=== PATIENT | male | born 1975 | race Caucasian/White ===

== ENCOUNTER 2016-10-21 21:40 | Emergency (ER) | payer MEDICAID ==
[2016-10-21 21:44] VITALS: BP 106/71; PULSE 93; RESP 14; TEMP 97.9; O2SAT 94
--- NOTE | 2016-10-21 22:14 | EDPHY ---
H & P Stated Complaint: L thumb abcess Time Seen by Provider: 10/21/16 22:00 HPI/ROS: HPI The patient presents with left thumb redness and swelling which has been present for the last 2-3 weeks which is associated with pain. This began after shooting IV drugs into his thumb. This is been getting progressively worse. About 3 days ago he attempted to Rei it himself at home, however was unsuccessful. Thus he return to the emergency room for further care. REVIEW OF SYSTEMS Constitutional: No fever, no chills. Eyes: No discharge. ENT: No sore throat. Cardiovascular: No chest pain, no palpitations. Skin: No rashes. Neurological: No headache. PMHx: Healthy otherwise, no diabetes Soc Hx: History of IV drug use PHYSICAL General Appearance: Alert, no distress Eyes: Pupils equal and round no pallor or injection ENT, Mouth: Mucous membranes moist Respiratory: There are no retractions, lungs are clear to auscultation Cardiovascular: Regular rate and rhythm Neurological: A&O, moves all extremities Skin: Warm and dry, no rashes Musculoskeletal: Neck is supple non tender Extremities: Left thumb dorsal aspect with 4 x 6 cm area of fluctuation with overlying erythema, warmth, tenderness to palpation, full range of motion of thumb, 2+ radial pulses, brisk cap refill of thumb with full range of motion. Psychiatric: Patient is oriented X 3, there is no agitation Source: Patient Exam Limitations: No limitations - Personal History Current Tetanus/Diphtheria Vaccine: Unsure - Medical/Surgical History Hx Asthma: No Hx Chronic Respiratory Disease: No Hx Diabetes: No Hx Cardiac Disease: No Hx Renal Disease: No Hx Cirrhosis: No Hx Alcoholism: No Hx HIV/AIDS: No Hx Splenectomy or Spleen Trauma: No Other PMH: hx prior head injuries, migraines, arrhythmia, iv drug use - od, orif R wrist - Social History Smoking Status: Current every day smoker Constitutional: Initial Vital Signs Temperature (C) 36.6 C 10/21/16 21:42 Heart Rate 93 10/21/16 21:42 Respiratory Rate 14 10/21/16 21:42 Blood Pressure 106/71 10/21/16 21:42 O2 Sat (%) 94 10/21/16 21:42 O2 Delivery Mode Room Air Allergies/Adverse Reactions: No Known Allergies Allergy (Verified 02/16/16 01:26) Home Medications: Medication Instructions Recorded Clindamycin HCl [Clindamycin] 300 mg PO TID #30 cap 10/21/16 Medical Decision Making Procedures: Procedure I and D: The wound was anesthetized with lidocaine 1% without epinephrine approximately 2 mL. Using a 15. Blade scalpel an incision was made over the area of maximal fluctuance with return of a moderate amount of pus. The wound was not packed given its small size. Differential Diagnosis: This is a 41-year-old man who is otherwise healthy with IV drug use who injected into his left thumb approximately 3 weeks ago. He subsequently developed redness, pain, swelling of the thumb. He attempted to perform incision and drainage at home 3 days ago but has had continued swelling. He denies any fevers or chills, nausea or vomiting. He has no prior history of similar. Differential diagnosis includes abscess, cellulitis, less likely necrotizing fasciitis given well localized and small size of wound, patient is not systemically ill. Plan to perform incision and drainage in the emergency room. I will start him on antibiotics given that he is an IV drug user. He is invited to return for wound check in 2 days to the emergency room or to [facility], I have given him the information. We have updated his tetanus shot. Departure - Departure Disposition: Home, Routine, Self-Care Clinical Impression: Abscess of thumb, left Condition: Good Instructions: Abscess Follow-up (ED) Additional Instructions: Please keep the wound clean. It is okay to get it wet in the shower or bath. You can return in 2 days for wound check. Referrals: [facility] [Outside] - As per Instructions Prescriptions: Clindamycin HCl [Clindamycin] 300 mg PO TID #30 cap
[2016-10-21] MEDS ORDERED: TDAP ADULT 0.5 ML INJ (BOOSTRIX) IM ONE (22:16)
[2016-10-21] MEDS ORDERED: BACITRACIN OINTMENT 1 PACKET TP ONE (22:27)
[2016-10-21] MEDS ORDERED: CLINDAMYCIN 150 MG CAP PO ONE (22:44)
== END 2016-10-21 22:49 | disposition home or self-care (01) ==
PROC: 0H9GXZZ Drainage of Left Hand Skin, External Approach (ICD-10-PCS; principal; 2016-10-21)
DX: L02.512 Cutaneous abscess of left hand (principal); F17.200 Nicotine dependence, unspecified, uncomplicated

== ENCOUNTER 2017-01-04 22:57 | Inpatient (IN) | payer MEDICAID ==
--- NOTE | 2017-01-04 23:09 | EDPHY ---
H & P Time Seen by Provider: 01/04/17 23:02 HPI/ROS: CHIEF COMPLAINT: Right upper extremity swelling HISTORY OF PRESENT ILLNESS: 41 year old male with history of hepatitis-C, IV drug use, arrives from intermediate for evaluation of right upper extremity erythema, swelling, induration. Denies: Fever, chills, nausea, vomiting, chest pain, dyspnea. Patient has history of right distal radius ORIF in November [address] Gómez Blue. REVIEW OF SYSTEMS: A ten point review of systems was performed and is negative with the exception of the items mentioned in the HPI PAST MEDICAL & SURGICAL HISTORY: Hepatitis-C. IV drug use. Right distal radius ORIF November 2014 Dr. Gómez Blue. SOCIAL HISTORY: history of IV drug use PHYSICAL EXAM (Prior to examination, patient consented to physical exam, hands were washed and my usual and customary physical exam procedures followed) 1) GENERAL: Well-developed, well-nourished, alert and oriented. Appears nontoxic 2) HEAD: Normocephalic, atraumatic 3) HEENT: Pupils equal, round, reactive to light bilaterally. Sclera anicteric. 4) NECK: Full range of motion, no meningeal signs. 5) LUNGS: Clear auscultation bilaterally 6) HEART: Regular rate and rhythm, no murmur 7) ABDOMEN: No guarding, no rebound, no focal tenderness, 8) MUSCULOSKELETAL: Right upper extremity: Volar wrist surgical incision noted. There is erythema, induration, increased warmth and pain at this site. There is similar at the right antecubital fossa. No axillary adenopathy noted. No crepitus. Soft compartments. Range of motion distally does not elicit abnormal pain proximally. Multiple puncture wounds at venous sites noted. Left upper extremity: Multiple puncture wounds at venous sites noted with no signs of abscess. 9) BACK: no visual or palpable abnormality. 10) SKIN: Multiple puncture wounds to bilateral upper extremities 11) Psychiatric: Patient is oriented X 3, there is no agitation. DIFFERENTIAL DIAGNOSIS: in no particular order including but not limited to DVT, abscess cellulitis, necrotizing fasciitis - Medical/Surgical History Hx Asthma: No Hx Chronic Respiratory Disease: No Hx Diabetes: No Hx Cardiac Disease: No Hx Renal Disease: No Hx Cirrhosis: No Hx Alcoholism: No Hx HIV/AIDS: No Hx Splenectomy or Spleen Trauma: No Other PMH: hx prior head injuries, migraines, arrhythmia, iv drug use - od, orif R wrist - Social History Smoking Status: Current every day smoker Constitutional: Initial Vital Signs Temperature (C) 37.0 C 01/04/17 23:04 Heart Rate 88 01/04/17 23:04 Respiratory Rate 16 01/04/17 23:04 Blood Pressure 122/77 H 01/04/17 23:04 O2 Sat (%) 96 01/04/17 23:04 O2 Delivery Mode Room Air Allergies/Adverse Reactions: No Known Allergies Allergy (Verified 02/16/16 01:26) Home Medications: Medication Instructions Recorded Seroquel 01/04/17 Medical Decision Making ED Course/Re-evaluation: 11:09 p.m.: This patient is physical exam findings concerning for multiple abscesses to his upper extremity including an abscess in location of orthopedic hardware placed in 2014 as well as his concurrent hepatitis C history. Recommended admission to hospital as well as IV antibiotics. Patient is agreeable with admission. Discussed case Dr. Reagan in ER. 11:22 p.m.: Phone consultation with hospitalist Dr. Flores who will admit patient Departure - Departure Disposition: [facility] Acute Clinical Impression: Right upper extremity abscesses multiple, IV drug user Hepatitis C Qualifiers: Viral hepatitis chronicity: unspecified Hepatic coma status: without hepatic coma Qualified Code(s): B19.20 - Unspecified viral hepatitis C without hepatic coma Condition: Fair Referrals: NONE *PRIMARY CARE P,. [Primary Care Provider] - As per Instructions
[2017-01-04] MEDS ORDERED: ONDANSETRON DISINTEGRATING 4 MG TAB PO PRN (23:33)
[2017-01-04] MEDS ORDERED: ONDANSETRON 4 MG/2 ML VIAL IVP PRN (23:33)
[2017-01-04] MEDS ORDERED: ACETAMINOPHEN 325 MG TAB PO PRN (23:33)
[2017-01-04] MEDS ORDERED: VANCOMYCIN PHARMACY TO DOSE MISC SCH (23:45)
[2017-01-04 23:57] LABS: % IMMATURE GRANULYOCYTES 0.5 % (0.0-1.1); ABSOLUTE IMMATURE GRANULOCYTES 0.07 10^3/uL (0.00-0.10); ADD DIFF? NO; ADD MORPH? NO; ADD SCAN? NO; ATYPICAL LYMPHOCYTE FLAG 10 (0-99); FRAGMENT RBC FLAG 0 (0-99); HEMATOCRIT 42.9 % (40.0-51.0); HEMOGLOBIN 13.9 g/dL (13.7-17.5); LEFT SHIFT FLG 0 (0-99); LIPEMIA HEMOLYSIS FLAG 80 (0-99); MEAN CELL HEMOGLOBIN 29.9 pg (27.9-34.1); MEAN CELL HEMOGLOBIN CONCENTR. 32.4 g/dL (32.4-36.7); MEAN CELL VOLUME 92.3 fL (81.5-99.8); MEAN PLATELET VOLUME 9.2 fL (8.7-11.7); PLATELET CLUMPS FLAG 10 (0-99); PLATELET COUNT 337 10^3/uL (150-400); RED BLOOD CELL COUNT 4.65 10^6/uL (4.40-6.38); RED CELL DISTRIBUTION WIDTH 13.4 % (11.5-15.2)
[2017-01-05 00:16] LABS: ANION GAP 14 mEq/L (8-16); CALCIUM 9.7 mg/dL (8.5-10.4); CARBON DIOXIDE 24 mEq/l (22-31); CHLORIDE 106 mEq/L (97-110); CREATININE 0.7 mg/dL (0.7-1.3); GLOMERULAR FILTRATION RATE > 60; GLUCOSE 96 mg/dL (70-100); POTASSIUM 4.4 mEq/L (3.5-5.2); SODIUM 144 mEq/L (134-144)
[2017-01-05] MEDS ORDERED: VANCOMYCIN HCL/NORMAL SALINE 250 ML IV ONE (01:00)
[2017-01-05 04:59] LABS: % IMMATURE GRANULYOCYTES 0.3 % (0.0-1.1); ABSOLUTE IMMATURE GRANULOCYTES 0.04 10^3/uL (0.00-0.10); ADD DIFF? NO; ADD MORPH? NO; ADD SCAN? NO; ATYPICAL LYMPHOCYTE FLAG 10 (0-99); FRAGMENT RBC FLAG 0 (0-99); HEMATOCRIT 36.1 % (40.0-51.0); HEMOGLOBIN 11.9 g/dL (13.7-17.5); LEFT SHIFT FLG 0 (0-99); LIPEMIA HEMOLYSIS FLAG 80 (0-99); MEAN CELL HEMOGLOBIN 30.4 pg (27.9-34.1); MEAN CELL VOLUME 92.1 fL (81.5-99.8); MEAN PLATELET VOLUME 9.3 fL (8.7-11.7); PLATELET CLUMPS FLAG 0 (0-99); PLATELET COUNT 292 10^3/uL (150-400); RED BLOOD CELL COUNT 3.92 10^6/uL (4.40-6.38); RED CELL DISTRIBUTION WIDTH 13.6 % (11.5-15.2)
--- NOTE | 2017-01-05 07:44 | GHP ---
[f rep st] HISTORY AND PHYSICAL DATE OF ADMISSION: 01/04/2017 CHIEF COMPLAINT: Right arm swelling. HISTORY OF PRESENT ILLNESS: This is a 41-year-old male with a history of IV drug abuse. He also corrales s a history of a fracture on the right wrist and has hardware. He states that he has had 2 weeks of right wrist and arm swelling. He has not had any fevers or chills. There has been some increased pain. He did receive a dose of vancomycin in the emergency department, is feeling a lot better now. He does not have a previous history of MRSA. REVIEW OF SYSTEMS: Ten-point review of systems was obtained; other than stated above, was negative. PAST MEDICAL HISTORY: 1. IV drug abuse. 2. Hepatitis C. 3. Right wrist fracture with status post surgery. SOCIAL HISTORY: Positive smoking, positive IV drug abuse with heroin. FAMILY HISTORY: Reviewed and noncontributory. PHYSICAL EXAMINATION: VITAL SIGNS: Afebrile. Blood pressure is heart rate is 78, oxyge n saturation 91% on room air. GENERAL: Patient is well developed, in no apparent distress. HEENT: Nonicteric sclerae. Extraocular movements intact. Moist mucous membranes. NECK: Supple. No th yromegaly. LUNGS: Good effort. Clear to auscultation bilaterally. CARDIOVASCULAR: Regular rate and rhythm. No murmurs, gallops. ABDOMEN: Positive bowel sounds. Soft, nontender, nondistended. No hepatosplenomegaly. EXTREMITIES: Right arm shows some warmth and mild erythema. There is an a rei of swelling just right at the wrist, but it seems firm without any fluctuance that I am able to ascertain. He is able to move all fingers. NEURO: Alert and oriented x3. Moving all 4 extremitie s equally. PSYCHIATRIC: Normal mood and affect. LABORATORY DATA: White count is 14. Otherwise, normal. Chemistry is normal. Ultrasound was done, but I do not have the results of this. ASSESSMENT: This is a 41-year-old male with history of IV drug abuse presenting with right arm cell ulitis. PLAN: 1. Right arm cellulitis. This has been going on for a couple weeks. He has been given vancomycin in the emergency department. We will continue this. We will get Infectious Disease to see him, as well, as there is a question of hardware underneath the cellulitis and if a longer course of IV anti biotics and search for osteomyelitis is indicated. I am not feeling any fluctuance at this point. Ultrasound is pending. We will have surgery come take a look. 2. History of hepatitis C. 3. Admission. Patient will be made a full admission status. Case discussed with ER physician. Rk hua is high risk due to vancomycin dosing. /[id number]/MODL
[2017-01-05] MEDS: OXYCODONE/APAP 5/325 TAB PO PRN ×2 (10:45→20:14)
--- NOTE | 2017-01-05 12:39 | SOAPPROG ---
SOAP Progress Note Assessment/Plan: Assessment: 41-YEAR-OLD MALE WITH 2 ABSCESSES RIGHT ARM SECONDARY TO NEEDLE INJECTIONS FOR DRUG USE. AFEBRILE RISKS AND OPTIONS FULLY DISCUSSED PATIENT WILL NEED I AND D Plan: I AND D TODAY 01/05/17 12:38 Objective: Vital Signs Temp Pulse Resp BP Pulse Ox 36.8 C 69 16 106/58 L 95 01/05/17 11:06 01/05/17 11:06 01/05/17 11:06 01/05/17 11:06 01/05/17 11:06 Laboratory Results 01/05/17 04:41 01/04/17 23:48 01/04/17 01/05/17 01/06/17 05:59 05:59 05:59 Intake Total 625 300 Output Total 400 Balance 625 -100 ICD10 Worksheet Patient Problems: Problems Problem Status Onset Hepatitis C Acute IV drug user Acute Fracture at left wrist or hand level Acute
[2017-01-05] MEDS ORDERED: BUPIVACAINE 0.5% 30 ML SDV ONE (13:06)
[2017-01-05] MEDS ORDERED: fentaNYL 250 MCG/5 ML INJ ONE (13:25)
[2017-01-05] MEDS ORDERED: PROPOFOL 200 MG/20 ML VIAL ONE ×2 (13:25→14:46)
[2017-01-05] MEDS ORDERED: MIDAZOLAM 2 MG/2 ML VIAL ONE ×2 (14:11→14:38)
--- NOTE | 2017-01-05 15:11 | HOSPPROG ---
Hospitalist Progress Note Assessment/Plan: 41y male with c/o right wrist pain. D/W Dr Flores. This is my first encounter. Chart reviewed. #Right wrist infection Julio to I&D today Abscess present Cont abx ID consult pending #Pain cont support care and meds #IVDA last use yesterday heroin #Withdrawl order Ativan #Hep C no intervention now #Dispo unclear given further evaluation Await cultures. Subjective: Very tired, still having some pain. Objective: Vital Signs Temp Pulse Resp BP Pulse Ox 36.8 C 69 16 106/58 L 95 01/05/17 11:06 01/05/17 11:06 01/05/17 11:06 01/05/17 11:06 01/05/17 11:06 Laboratory Results 01/05/17 04:41 01/04/17 23:48 01/04/17 01/05/17 01/06/17 05:59 05:59 05:59 Intake Total 625 300 Output Total 400 Balance 625 -100 - Physical Exam Constitutional: chronically ill appearing, uncomfortable, unkempt Eyes: PERRL, anicteric sclera, EOMI Ears, Nose, Mouth, Throat: moist mucous membranes, hearing normal, ears appear normal Cardiovascular: tachycardia, No JVD, No edema Respiratory: no respiratory distress, no rales or rhonchi, reduced air movement Gastrointestinal: No tenderness, No ascites, No guarding Skin: warm, erythema, fluctuance Musculoskeletal: normal joint ROM, joint tenderness, pain with ROM Neurologic: AAOx3 Psychiatric: interacting appropriately, not anxious, not encephalopathic, poor insight ICD10 Worksheet Patient Problems: Problems Problem Status Onset Fracture at left wrist or hand level Acute IV drug user Acute Hepatitis C Acute
[2017-01-05] MEDS: VANCOMYCIN 1.25 GM in D5W 250 ML IV SCH (16:30)
--- NOTE | 2017-01-05 18:06 | GCON ---
[f rep st] CONSULTATION INPATIENT INFECTIOUS DISEASE CONSULTATION DATE OF CONSULTATION: 01/05/2017 REFERRING PHYSICIAN: Edie Flores MD REASON FOR REFERRAL: Right upper extremity cellulitis and abscess. HISTORY OF PRESENT ILLNESS: Patient is a 41-year-old male who is a known injection drug user who pr esented to [facility] on 01/04/2017. He complained of right arm swelli ng. He also has a history of a fracture of the radius and ulna of the right side with hardware soledad nstruction. The patient states his symptoms have been ongoing for the last 2 weeks. Denied any fev ers or chills upon presentation. He noted that the size of the arm and the amount of pain in the ar m has increased. He is managed currently with vancomycin monotherapy. He did, per his report, go t o the operating room this afternoon for incision and drainage of 2 discovered fluid collections in t he arm. PAST MEDICAL HISTORY: 1. IV drug use. 2. Hepatitis C. PAST SURGICAL HISTORY: Status post reconstruction of the right radius and ulna with hardware. ANTIBIOTICS: Vancomycin. ALLERGIES: The patient has no known drug allergies. SOCIAL HISTORY: The patient is a current tobacco user. He also is a current IV heroin user. FAMILY HISTORY: Noncontributory. REVIEW OF SYSTEMS: Other than that detailed above in History of Present Illness, a comprehensive 10 -system review is negative. PHYSICAL EXAMINATION: VITAL SIGNS: Temperature maximum is 37.0, temperature current is 36.5, heart rate is 67, respiratory rate is 20, blood pressure is 115/67. GENERAL: The patient is a well-form ed, well-nourished, middle-aged male, in no acute distress. He is not toxic in appearance. He is a lert and oriented x3. He has a pleasant demeanor. HEENT: Normocephalic for age. Atraumatic. No drainage from the nares. Eyes: Lids and conjunctivae within normal limits. Pupils are equal, roun d bilaterally. NECK: Supple. No meningismus. LUNGS: Clear to auscultation bilaterally with good effort. HEART: Regular rate and rhythm. No significant peripheral edema. SKIN: Warm and dry to the touch. The patient has 2 areas of incisions on the right upper extremity; 1 near the wrist and 1 up near the elbow. These have postoperative dressings intact. There is edema and some mild eryt percy of the right upper extremity from the elbow to wrist. Mild tenderness to palpation. MUSCULOSK ELETAL: No other muscle belly tenderness is noted. No joint enlargement, effusion, or arthritis is seen. NEUROLOGIC: Cranial nerves 2 through 12 seem to be intact. Peripheral sensation is intact in extremities. LABORATORY DATA: Patient has a CBC dated 01/05/17, shows a white blood cell count of 11.59, hemoglo bin of 11.9, hematocrit of 36.1, and platelet count of 292. Differentials within normal limits. [facility] chemistries on 01/04/17, are all within normal limits. Creatinine 0.7. MICROBIOLOGIC DATA: The patient has operative cultures dated 01/05/17, both Gram stain and cultures are pending. The patient has blood cultures dated 01/04/17, which are pending. RADIOLOGIC DATA: Patient has wrist x-ray dated 01/04/17, which shows old healed posttraumatic golden e associated with the base of the 5th metacarpal, ulnar styloid, and distal radius. Also shows soft tissue swelling in the distal forearm. ASSESSMENT: Right upper extremity cellulitis with probable multiple areas of small fluid collection s and abscesses. Unclear causative pathogen at this point. Vancomycin monotherapy is reasonable fo r now. We will follow up on results of Gram stain and culture from the operative procedure today. Will adjust antibiotics as necessary. PLAN: 1. Continue vancomycin monotherapy. 2. Follow laboratory data and clinical course. /[id number]/MODL
--- NOTE | 2017-01-05 18:23 | POSTOPPROG ---
Post Op Note Date of Operation: 01/05/17 Surgeon: Dexter Dean Anesthesiologist: SANTIAGO Anesthesia: GET(General Endotracheal) Pre-op Diagnosis: MULTIPLE ARM ABSCESSES Indication: SAME Procedure: I AND D RIGHT ANTECUBITAL ABSCESS / I AND D RIGHT VOLAR WRIST ABSCESS Findings: 2 SEPARATE PURULENT ABSCESSES Inf/Abcess present in the surg proc area at time of surgery?: Yes Depth: Superfical (Skin SQ) EBL: Minimal Complications: 0 Specimen(s): CULTURES
[2017-01-05] MEDS: LORazepam 1 MG TAB PO PRN (20:14)
--- NOTE | 2017-01-05 21:06 | GOP ---
[f rep st] OPERATIVE REPORT DATE OF OPERATION: 01/05/2017 SURGEON: Dexter Dean MD PREOPERATIVE DIAGNOSIS: Multiple right arm abscesses. POSTOPERATIVE DIAGNOSIS: Multiple right arm abscesses. PROCEDURE PERFORMED: 1. Incision and drainage of an antecubital abscess. 2. Incision and drainage of a volar wrist abscess. FINDINGS: Patient was found to have 2 separate fluctuant abscesses containing 5 cc of purulent mate rial each. DESCRIPTION OF PROCEDURE: Patient was taken to the operating room, received satisfactory general en dotracheal anesthesia by , placed in a supine position with the right arm outstretch ed on an arm board, prepped and draped in usual sterile fashion. A transverse incision made in the antecubital space over the fluctuant area. Dissection extended down the abscess cavity which was th en drained. Hemostasis was assured. The wound was infiltrated with 0.5% Marcaine and packed with io doform gauze. Similar abscess was present at the volar wrist area. A longitudinal incision was made opening that abscess. Again it was flushed out and then packed and infiltrated with 0.5% Marcaine. He tolerated the procedure well. There were no complications. Blood loss was negligible. Taken to the recovery room in good condition. /[id number]/MODL
[2017-01-06] MEDS: VANCOMYCIN 1.25 GM in D5W 250 ML IV SCH (01:37)
[2017-01-06] MEDS: LORazepam 1 MG TAB PO PRN (01:37)
[2017-01-06 07:21] VITALS: BP 109/68; PULSE 62; RESP 16; TEMP 97.9; O2SAT 98
[2017-01-06] MEDS ORDERED: QUEtiapine FUMARATE 200 MG TAB PO SCH (09:00)
[2017-01-06] MEDS ORDERED: ALPRAZolam 1 MG TAB PO SCH (10:00)
--- NOTE | 2017-01-06 10:27 | SOAPPROG ---
SOAP Progress Note Assessment/Plan: Assessment: 41-YEAR-OLD MALE WITH 2 ABSCESSES RIGHT ARM SECONDARY TO NEEDLE INJECTIONS FOR DRUG USE. AFEBRILE RISKS AND OPTIONS FULLY DISCUSSED PATIENT WILL NEED I AND D Plan: I AND D TODAY 01/05/17 12:38 01/06/17 10:26 afebrile/ wounds and pain improved/ will proceed with daily packings/ plans per IM Objective: Vital Signs Temp Pulse Resp BP Pulse Ox 36.6 C 62 16 109/68 98 01/06/17 07:20 01/06/17 07:20 01/06/17 07:20 01/06/17 07:20 01/06/17 07:20 Microbiology 01/05/17 15:25 Gram Stain - Final Arm - Eswab 01/05/17 15:25 Gram Stain - Final Wrist - Eswab Laboratory Results 01/05/17 04:41 01/04/17 23:48 01/05/17 01/06/17 01/07/17 05:59 05:59 05:59 Intake Total 625 1440 Output Total 405 Balance 625 1035 ICD10 Worksheet Patient Problems: Problems Problem Status Onset Hepatitis C Acute IV drug user Acute Fracture at left wrist or hand level Acute
--- NOTE | 2017-01-06 11:33 | GOP ---
[f rep st] OPERATIVE REPORT DATE OF OPERATION: 01/05/2017 SURGEON: Dexter Dean MD PREOPERATIVE DIAGNOSIS: Multiple right arm abscesses secondary to injection sites. POSTOPERATIVE DIAGNOSIS: Multiple right arm abscesses secondary to injection sites. PROCEDURE PERFORMED: 1. Incision and drainage of a right antecubital abscess. 2. Incision and drainage of a right volar wrist abscess. FINDINGS: The patient was found to have both areas with fluctuant, purulent abscesses. DESCRIPTION OF PROCEDURE: The patient was taken to the operating room, where he received satisfacto ry general laryngeal mask anesthesia by Dr. Fall, placed in a supine position, prepped and draped i n the usual sterile fashion with the right arm outstretched on an arm board. Areas were infiltrated with 0.5% Marcaine, and then direct incisions were made into the fluctuant areas of the abscess cavi ties until the cavity was entered and the purulent material was expressed. Both areas were cultured and packed with iodoform gauze. He tolerated the procedure quite well. There were no complications. The wounds were dressed. He was taken to the recovery room in good condition. /[id number]/MODL
--- NOTE | 2017-01-06 15:43 | GDS ---
[f rep st] DISCHARGE SUMMARY AGAINST MEDICAL ADVICE [facility] DIAGNOSES: 1. Right wrist infection. 2. Pain. 3. History of IV drug abuse. 4. Withdrawal. 5. Hepatitis C. CONSULTATIONS: 1. Dr. Dean of Surgery. 2. Infectious Disease. STUDIES AND PROCEDURES DONE: I and D of the right wrist for multiple arm abscesses. PHYSICAL EXAMINATION: GENERAL: The patient is alert. VITAL SIGNS: Afebrile at 36.6, pulse is 62, respiratory rate 16, blood pressure is 109/68. He is saturating 98% on room air. I have seen and evaluated the patient prior to disposition. HOSPITAL COURSE: The patient is a 41-year-old male who has a longstanding history of IV drug abuse, specifically heroin. He presented to the emergency room with complaints of right wrist pain. He was evaluated and admitted to the hospital. During this hospitalization, he received surgical intervention with I and D of the right wrist per Dr. Dean. The patient was suffering some withdrawal and was provided with Ativan, Xanax and offered Librium during this hospital stay. The patient was educated that he required antibiotic therapy and that his infection was not resolved. He was educated at length that this infection could be grave if not treated properly. I reviewed the patient's care with Dr. Waters during this hospital course. The patient left against medical advice and will acquire followup in the outpatient setting, presumably. He was not given any prescriptions at the time of disposition. Again, he received substantial education from myself as well as Dr. Waters with regard to the importance of treating this acute infection in the hospital setting. /[id number]/MODL MTDD
[2017-01-06] MEDS ORDERED: ALPRAZolam 0.5 MG TAB PO SCH (16:00)
--- NOTE | 2017-01-06 16:18 | PCMIDPN ---
Assessment/Plan: Assessment: Right upper extremity cellulitis. Patient is improved clinically over the last 24 hours on vancomycin. G stains from operative collections show gram-positive cocci in clusters consistent with Staphylococcus. Cultures are still pending. Patient is quite agitated and detoxing from heroin. Plan: 1. Continue IV vancomycin. Suspect that we will switch him over to oral antibiotics in 1-2 days for discharge. 2. Plan is to treat for a full 2 week course and if the inflammation recurs in short order then the underlying hardware may be implicated. However at this point I do not see sufficient reason to implicate the hardware or bone infection at this time. 01/06/17 16:16 Subjective: Patient is in his hospital room. His girlfriend is with him. He is very agitated secondary to withdraw from illicit drugs. States that his right arm is much less swollen and red. Objective: Vancomycin #2 Vital Signs Temp Pulse Resp BP Pulse Ox 36.6 C 62 16 109/68 98 01/06/17 07:20 01/06/17 07:20 01/06/17 07:20 01/06/17 07:20 01/06/17 07:20 Microbiology 01/05/17 15:25 Gram Stain - Final Arm - Eswab 01/05/17 15:25 Gram Stain - Final Wrist - Eswab Laboratory Results 01/05/17 04:41 01/04/17 23:48 01/05/17 01/06/17 01/07/17 05:59 05:59 05:59 Intake Total 625 1440 Output Total 405 Balance 625 1035 - Physical Exam General Appearance: WD/WN, alert, no apparent distress, other (Tremulous and agitated.) Respiratory: lungs clear, normal breath sounds, No respiratory distress Cardiac/Chest: regular rate, rhythm, tachycardia Extremities: No non-tender, No normal inspection Skin: normal color, warm/dry, No rash Neuro/Psych: alert ICD10 Worksheet Patient Problems: Problems Problem Status Onset Fracture at left wrist or hand level Acute Hepatitis C Acute IV drug user Acute
== END 2017-01-06 10:30 | disposition left against medical advice (07) | DRG 603 ==
LOC: F3E 01-05 01:35
PROVIDERS: ADMIT Internal Medicine; ATTEND Internal Medicine
PROC: 0J9G3ZX Drainage of Right Lower Arm Subcutaneous Tissue and Fascia, Percutaneous Approach, Diagnostic (ICD-10-PCS; principal; 2017-01-05 13:30)
PROC: 0J9D3ZX Drainage of Right Upper Arm Subcutaneous Tissue and Fascia, Percutaneous Approach, Diagnostic (ICD-10-PCS; principal; 2017-01-05 13:30)
DX: L02.413 Cutaneous abscess of right upper limb (principal); L03.113 Cellulitis of right upper limb; F11.23 Opioid dependence with withdrawal; B19.20 Unspecified viral hepatitis C without hepatic coma
CPT/HCPCS: J2250; J2704; J3010; J3370

== ENCOUNTER 2017-01-06 23:56 | Inpatient (IN) | payer MEDICAID ==
--- NOTE | 2017-01-07 00:31 | EDPHY ---
H & P Stated Complaint: left hospital AMA today, desires readmission for abx Time Seen by Provider: 01/07/17 00:24 HPI/ROS: Chief complaint: Right arm infection, left hospital AMA today History of present illness: This is a 41-year-old male who was admitted to the hospital a few days ago for right arm cellulitis. He was being treated with IV vancomycin. He did undergo surgical debridement. He was being followed by infectious disease. Today patient decided to leave the hospital AMA. He returns this evening requesting readmission as he wants to continue treatment with antibiotics. He denies any new signs or symptoms. - Personal History Current Tetanus/Diphtheria Vaccine: Yes Current Tetanus Diphtheria and Acellular Pertussis (TDAP): Yes - Medical/Surgical History Hx Asthma: No Hx Chronic Respiratory Disease: No Hx Diabetes: No Hx Cardiac Disease: No Hx Renal Disease: No Hx Cirrhosis: No Hx Alcoholism: No Hx HIV/AIDS: No Hx Splenectomy or Spleen Trauma: No Other PMH: hx prior head injuries, migraines, arrhythmia, iv drug use - od, orif R wrist - Social History Smoking Status: Light smoker - Physical Exam Exam: General Appearance: Alert, nontoxic. Eyes: Pupils equal and round no injection. Respiratory: Chest is non tender, lungs are clear to auscultation. Cardiac: regular rate and rhythm Gastrointestinal: Abdomen is soft and non tender, no masses, bowel sounds normal. Musculoskeletal: Neck is supple and non tender. Extremities have full range of motion and are non tender. Skin: Erythema and edema to the right upper extremity. Dressings in place. Constitutional: Initial Vital Signs Temperature (C) 36.8 C 01/06/17 23:59 Heart Rate 89 01/06/17 23:59 Respiratory Rate 16 01/06/17 23:59 Blood Pressure 123/78 H 01/06/17 23:59 O2 Sat (%) 92 01/06/17 23:59 O2 Delivery Mode Room Air Allergies/Adverse Reactions: No Known Allergies Allergy (Verified 02/16/16 01:26) Home Medications: Medication Instructions Recorded QUEtiapine FUMARATE [Seroquel 200 200 mg PO DAILY 01/04/17 mg (*)] Medical Decision Making ED Course/Re-evaluation: Patient seen under the supervision of my secondary supervising physician Dr. Anthony Morrison. Patient presents to the emergency department requesting readmission to the hospital to continue IV antibiotics for right upper extremity cellulitis. Patient is readmitted. He is given a dose of vancomycin. Departure - Departure Disposition: [facility] Acute Clinical Impression: Right arm cellulitis Condition: Fair
[2017-01-07] MEDS ORDERED: VANCOMYCIN 1.25 GM in D5W 250 ML IV ONE (00:45)
[2017-01-07] MEDS ORDERED: ACETAMINOPHEN 325 MG TAB PO PRN (01:45)
[2017-01-07] MEDS ORDERED: LORazepam 2 MG/ML INJ IVP PRN (01:45)
[2017-01-07] MEDS ORDERED: ONDANSETRON DISINTEGRATING 4 MG TAB PO PRN (01:45)
[2017-01-07] MEDS ORDERED: ONDANSETRON 4 MG/2 ML VIAL IVP PRN (01:45)
[2017-01-07] MEDS ORDERED: oxyCODONE IR 5 MG TAB PO PRN (01:45)
[2017-01-07] MEDS ORDERED: NICOTINE POLACRILEX 2 MG GUM B PRN (03:37)
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
[2017-01-07 06:59] VITALS: TEMP 97.9
[2017-01-07] MEDS ORDERED: ALTEPLASE 2 MG VIAL IVP PRN (07:13)
[2017-01-07] MEDS ORDERED: NICOTINE 14 MG/24 HR PATCH TD SCH (09:00)
[2017-01-07] MEDS ORDERED: DOXYCYCLINE HYCLATE 100 MG CAP/TAB PO SCH (11:30)
--- NOTE | 2017-01-07 11:30 | PCMIDPN ---
Assessment/Plan: Assessment: Right upper extremity cellulitis and abscess secondary to MRSA. Patient is an active IV drug user. He went AMA yesterday for a period of time and came back for treatment and was much calmer. Given the pathogen is now cultured out and is susceptible to oral tetracyclines will discontinue the IV vancomycin and move him to oral doxycycline. Wounds changed today. Okay for discharge on doxycycline 100 mg p.o. twice daily with follow up in clinic in approximately 7- 10 days time. Plan: 1. Discontinue vancomycin. 2. Start doxycycline 100 mg p.o. twice daily. Duration 14 days. 3. Follow up in clinic in 7-10 days. 01/07/17 11:27 Subjective: Patient resting in his hospital bed. He is quite drowsy. Admits to using yesterday once he left AMA. Denies any other issues. States that his right arm is much less swollen and painful. Objective: Vancomycin # 3 Vital Signs Temp Pulse Resp BP Pulse Ox 36.6 C 55 L 14 95/61 L 92 01/07/17 06:57 01/07/17 06:57 01/07/17 06:57 01/07/17 06:57 01/07/17 06:57 01/06/17 01/07/17 01/08/17 05:59 05:59 05:59 Intake Total 500 Balance 500 - Physical Exam General Appearance: WD/WN, alert, no apparent distress, non-toxic Cardiac/Chest: regular rate, rhythm, No tachycardia Extremities: inflammation, swelling (Mild), No non-tender (Minimally tender right upper extremity forearm more at wrist than elbow), No normal inspection ( Generalized cellulitis resolved. Inflammation call last around to subcutaneous abscesses 1 close to the antecubital area the other on the palmar aspect of the right wrist.) Skin: normal color, warm/dry, No rash Neuro/Psych: alert, normal mood/affect, oriented x 3 ICD10 Worksheet Patient Problems: Problems Problem Status Onset Right arm cellulitis Acute Fracture at left wrist or hand level Acute Hepatitis C Acute IV drug user Acute
[2017-01-07 11:43] VITALS: BP 104/74; PULSE 68; RESP 16; O2SAT 95
[2017-01-07] MEDS ORDERED: VANCOMYCIN 1.25 GM in D5W 250 ML IV SCH (14:00)
--- NOTE | 2017-01-07 14:06 | GDS ---
[f rep st] DISCHARGE SUMMARY DISCHARGE DIAGNOSIS: Right upper extremity cellulitis with abscess secondary to methicillin-resista nt Staphylococcus aureus. The patient left AMA 1 day prior and returned for readmission. I reviewed the patient's care with Aura Waters of Infectious Disease. It was felt that it was safe based on cultures for him to be start ed on doxycycline 100 mg p.o. b.i.d. for a total of 14 days. He will be discharged home independent ly. He states that he can provide his own wound care, and packing supplies have been provided for h im at the time of disposition. He will follow up in the outpatient setting with Infectious Disease in 1 week. I have educated the patient at length regarding his drug addiction and seeking assistanc e. DISCHARGE MEDICATIONS: 1. Doxycycline 100 mg p.o. b.i.d., #28. 2. Xanax 0.5 mg t.i.d. p.r.n., #12. /[id number]/MODL
[2017-01-08] MEDS ORDERED: QUEtiapine FUMARATE 200 MG TAB PO SCH (09:00)
== END 2017-01-07 14:25 | disposition home or self-care (01) | DRG 603 ==
LOC: F3N 01-07 02:14
PROVIDERS: ADMIT Internal Medicine; ATTEND Internal Medicine
DX: L03.113 Cellulitis of right upper limb (principal); F11.90 Opioid use, unspecified, uncomplicated; F17.210 Nicotine dependence, cigarettes, uncomplicated; B18.2 Chronic viral hepatitis C; B95.62 Methicillin resistant Staphylococcus aureus infection as the cause of diseases classified elsewhere; G89.29 Other chronic pain
CPT/HCPCS: J3370

== ENCOUNTER 2017-07-08 17:09 | Emergency (ER) | payer SELFPAY ==
[2017-07-08 17:18] VITALS: BP 113/66; PULSE 72; RESP 14; TEMP 98.1; O2SAT 98
--- NOTE | 2017-07-08 17:20 | EDPHY ---
H & P Stated Complaint: multiple abcesses HPI/ROS: HPI CHIEF COMPLAINT: Multiple abscess, cellulitis, IV drug use, medical clearance from snf HISTORY OF PRESENT ILLNESS: This patient is a 41-year-old male who presents emergency room to be cleared to go to snf. He has multiple superficial abscesses throughout his body from IV drug use. Most notably on his right arm. These are indurated areas with very minimal warmth and very minimal redness there is no fluctuance or anything to actually I and D or drain. Additionally there is a lesion on the back of his left knee. That is open wound. Draining. No fever. He states he has raw from IV drug use. Past Medical History: Denies significant medical history Past Surgical History: Denies significant surgical Social History: IV drug use. Family History: Noncontributory ROS REVIEW OF SYSTEMS: A comprehensive 10 point review of systems is otherwise negative aside from elements mentioned in the history of present illness. Exam Constitutional appears well nontoxic triage nursing summary reviewed, vital signs reviewed, awake/alert. Eyes normal conjunctivae and sclera, EOMI, PERRLA. HENT normal inspection, atraumatic, moist mucus membranes, no epistaxis, neck supple/ no meningismus, no raccoon eyes. Respiratory clear to auscultation bilaterally, normal breath sounds, no respiratory distress, no wheezing. Cardiovascular rate normal, regular rhythm, no murmur, no edema, distal pulses normal. Gastrointestinal soft, non-tender, no rebound, no guarding, normal bowel sounds, no distension, no pulsatile mass. Genitourinary no CVA tenderness. Musculoskeletal no midline vertebral tenderness, full range of motion, no calf swelling, no tenderness of extremities, no meningismus, good pulses, neurovascularly intact. Skin there are multiple superficial abscess on the right arm. 3 separate locations. There indurated however there is no fluctuance. There is nothing to drain at this time. Additional the left posterior knee they popliteal fossa region there is an open wound 2 cm x 2 cm with erythema draining. No jayjay purulence. No streaking or significant cellulitis. Neurologic awake, alert and oriented x 3, AAOx3, moves all 4 extremities equally, motor intact, sensory intact, CN II-XII intact, normal cerebellar, normal vision, normal speech. Psychiatric normal mood/affect. Heme/Lymph/Immune no lymphadenopathy. Differential Diagnosis: Includes but is not limited to in a particular order: Cellulitis, MRSA infection, strep infection, IV drug site infection Medical Decision Making: Plan for this patient warm compresses, antibiotics Keflex and Bactrim. 1st dose given in the emergency room. Monitor these infected sites. If they become more fluctuance or more swollen they may need I and D but at this time they do not need that. He appears well nontoxic he is not septic. He will be medically cleared for snf. Keflex and Bactrim as prescribed. Warm compresses. Dressing changes to the left posterior popliteal fossa wound. Source: Patient - Personal History Current Tetanus Diphtheria and Acellular Pertussis (TDAP): Yes - Medical/Surgical History Hx Asthma: No Hx Chronic Respiratory Disease: No Hx Diabetes: No Hx Cardiac Disease: No Hx Renal Disease: No Hx Cirrhosis: No Hx Alcoholism: No Hx HIV/AIDS: No Hx Splenectomy or Spleen Trauma: No Other PMH: hx prior head injuries, migraines, arrhythmia, iv drug use - od, orif R wrist - Social History Smoking Status: Current every day smoker Constitutional: Initial Vital Signs Temperature (C) 36.7 C 07/08/17 17:14 Heart Rate 72 07/08/17 17:14 Respiratory Rate 14 07/08/17 17:14 Blood Pressure 113/66 07/08/17 17:14 O2 Sat (%) 98 07/08/17 17:14 O2 Delivery Mode Room Air Allergies/Adverse Reactions: No Known Allergies Allergy (Verified 07/08/17 17:14) Home Medications: Medication Instructions Recorded QUEtiapine FUMARATE [Seroquel 200 200 mg PO DAILY 01/04/17 mg (*)] ALPRAZolam [Xanax 0.5 MG (*)] 0.5 mg PO TID PRN #12 tab 01/07/17 Acetaminophen [Tylenol 325mg (*)] 650 mg PO Q4HRS PRN #0 tab 01/07/17 Doxycycline Hyclate [Vibramycin 100 mg PO BID #28 capsule 01/07/17 100 MG (*)] Nicotine Polacrilex [Nicorette gum 2 mg B PRN PRN #0 gum 01/07/17 (*)] Cephalexin [Keflex] 500 mg PO TID #30 cap 07/08/17 Sulfamethox/Tmp 800/160 mg 1 tab PO BID@1000,2200 #14 tab 07/08/17 [Bactrim Ds] Departure - Departure Disposition: Home, Routine, Self-Care Clinical Impression: Cellulitis Qualifiers: Site of cellulitis: unspecified site Qualified Code(s): L03.90 - Cellulitis, unspecified Condition: Good Instructions: Cellulitis (ED) Additional Instructions: 1. I recommend that you placed warm compresses on your areas of infection 3 to 4 times a day. 2. I also recommend that you do dressing changes to the wound on the back of her knee twice a day. Wet to dry dressing changes. 3. Antibiotics as prescribed. 4. Return emergency room if there is worsening symptoms this includes worsening pain, redness, swelling. Prescriptions: Cephalexin [Keflex] 500 mg PO TID #30 cap Sulfamethox/Tmp 800/160 mg [Bactrim Ds] 1 tab PO BID@1000,2200 #14 tab
[2017-07-08] MEDS ORDERED: CEPHALEXIN 500 MG CAP PO ONE (17:29)
[2017-07-08] MEDS ORDERED: SULFAMETHOX/TMP 800/160 MG 1 TAB PO ONE (17:29)
== END 2017-07-08 17:42 | disposition home or self-care (01) ==
DX: L03.113 Cellulitis of right upper limb (principal); F17.200 Nicotine dependence, unspecified, uncomplicated

== ENCOUNTER 2017-07-27 20:49 | Emergency (ER) | payer SELFPAY ==
[2017-07-27] MEDS ORDERED: SULFAMETHOX/TMP 800/160 MG 1 TAB PO ONE ×2 (21:07)
[2017-07-27] MEDS ORDERED: CEPHALEXIN 500 MG CAP PO ONE ×2 (21:07)
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
[2017-07-27 21:23] VITALS: BP 140/70; PULSE 83; RESP 18; TEMP 98.2; O2SAT 97
== END 2017-07-27 21:23 | disposition home or self-care (01) ==
DX: L03.116 Cellulitis of left lower limb (principal); F17.200 Nicotine dependence, unspecified, uncomplicated; X58.XXXA Exposure to other specified factors, initial encounter

== ENCOUNTER 2018-06-29 22:13 | Emergency (ER) | payer MEDICAID ==
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
[2018-06-29 23:56] VITALS: BP 123/72
== END 2018-06-29 23:52 ==
LOC: EDUNIT#
DX: M79.601 Pain in right arm (principal); F11.10 Opioid abuse, uncomplicated; Y35.813A Legal intervention involving manhandling, suspect injured, initial encounter; F17.200 Nicotine dependence, unspecified, uncomplicated